=== PATIENT | male | born 1980 | race Asian ===

== ENCOUNTER 2017-04-12 15:06 | Emergency (ER) | payer OTHER ==
[~2017-04-12] VITALS: Ht 170.2 cm; Wt 84.1 kg
[2017-04-12 15:08] VITALS: BP 121/84
[2017-04-12] MEDS ORDERED: SODIUM CHLORIDE 0.9% 1,000ML IVBOLUS ONE (15:30)
[2017-04-12] MEDS ORDERED: SODIUM CHLORIDE FLUSH 10ML SYR IVF ONE (15:30)
[2017-04-12] MEDS ORDERED: ACETAMINOPHEN 325 MG TABLET PO ONE (16:00)
[2017-04-12 16:04] LABS: HEMATOCRIT 47.4 % (39.2-51.8); HEMOGLOBIN 16.1 g/dL (13.7-18.0); WHITE BLOOD COUNT 18.5 x10^3/uL (3.4-10)
[2017-04-12 16:16] LABS: ASPARTATE AMINO TRANSFERASE 22 U/L (15-37); BLOOD UREA NITROGEN 12 mg/dL (7-18)
[2017-04-12] MEDS ORDERED: ACETAMINOPHEN 325 MG TABLET ONE (16:32)
[2017-04-12] MEDS ORDERED: CEFTRIAXONE PMX 2GM/50ML 50 ML ONE (16:39)
[2017-04-12 16:40] LABS: RAPID INFLUENZA A Negative (Negative); RAPID INFLUENZA B Negative (Negative)
[2017-04-12 16:54] LABS: DIFF TOTAL CELLS COUNTED 100 CELL DIFF
[2017-04-12 16:56] LABS: VERIFY COUNTS? YES
[2017-04-12] MEDS ORDERED: SODIUM CHLORIDE 0.9%, 500ML IVBOLUS ONE (17:00)
[2017-04-12] MEDS ORDERED: KETOROLAC 30 MG/1 ML IVPush ONE (17:00)
[2017-04-12] MEDS ORDERED: CEFTRIAXONE PMX 2GM/50ML 50 ML IV ONE (17:00)
== END 2017-04-12 19:16 | disposition home or self-care (01) ==
LOC: ED 18:34
DX: R50.9 Fever, unspecified (principal); R19.7 Diarrhea, unspecified; M79.1 Myalgia
CPT/HCPCS: 36415; 71010; 80053; 80307; 83605; 85025; 87040; 87400; 96365; 99285; J0696; J7030; G0479